=== PATIENT | female | born 2005 | race Caucasian/White ===

== ENCOUNTER 2024-01-09 22:45 | Emergency (ER) | payer OTHER ==
[~2024-01-09] VITALS: Ht 167.6 cm; Wt 59.1 kg
[2024-01-09 22:51] VITALS: TEMP 98.3
[2024-01-09] MEDS ORDERED: Ketorolac 15 MG/ML VIAL IM ONE (23:45)
[2024-01-10 01:05] VITALS: BP 109/73; PULSE 73
== END 2024-01-10 01:11 | disposition home or self-care (01) ==
LOC: COL.ER 22:45
DX: S01.511A Laceration without foreign body of lip, initial encounter (principal); W51.XXXA Accidental striking against or bumped into by another person, initial encounter; Y93.45 Activity, cheerleading